=== PATIENT | female | born 1990 | race Caucasian/White ===

== ENCOUNTER 2022-10-21 22:55 | Emergency (ER) | payer MEDICAID ==
[~2022-10-21] VITALS: Ht 154.9 cm; Wt 69.0 kg
[2022-10-22 00:08] VITALS: O2SAT 100
[2022-10-22 00:38] LABS: BASOPHILS % 0.2 % (0.0-2.0); EOSINOPHILS % 0.1 % (0.0-5.0); HEMATOCRIT. 41.9 % (36.0-48.0); HEMOGLOBIN. 14.2 g/dL (12.0-16.0); LYMPHOCYTES % 9.4 % (20.0-50.0); MEAN CORPUSCULAR HEMOGLOBIN 31.1 pg (28.0-32.0); MEAN CORPUSCULAR VOLUME 91.6 fL (81.0-99.0); MEAN PLATELET VOLUME 6.7 fl (7.4-10.4); MONOCYTES % 4.5 % (2.0-8.0); NEUTROPHILS % 85.8 % (40.0-76.0); PLATELET 276 x1000/uL (130-400); RED BLOOD CELL COUNT 4.57 mill/uL (4.2-5.4)
[2022-10-22 00:45] LABS: CHLORIDE 109 mEq/L (98-107)
[2022-10-22 01:06] LABS: CLARITY URINE CLEAR (CLEAR); COLOR URINE YELLOW (YELLOW); KETONES URINE TRACE (NEGATIVE); LEUKOCYTE ESTERASE URINE TRACE (NEGATIVE); NITRITE URINE NEGATIVE (NEGATIVE); OCCULT BLOOD URINE TRACE (NEGATIVE); PH URINE 6.5 (4.5-8.0); PROTEIN URINE TRACE (NEGATIVE)
[2022-10-22 04:00] VITALS: TEMP 98.8
[2022-10-22] MEDS ORDERED: HYDR-4001 MT (04:51)
[2022-10-22] MEDS ORDERED: IBUP-2029 MT (04:51)
[2022-10-22 05:08] VITALS: BP 102/62; PULSE 80; RESP 16
== END 2022-10-22 05:09 | disposition home or self-care (01) ==
LOC: ER 22:55
DX: K80.20 Calculus of gallbladder without cholecystitis without obstruction (principal)
CPT/HCPCS: 36415; 76705; 80053; 81003; 81025; 85025; 99284